=== PATIENT | male | born 1955 | race Two or more races ===

== ENCOUNTER 2022-12-05 15:57 | Inpatient (IN) | payer OTHER ==
[2022-12-05 16:08] VITALS: BMI 28.1
[2022-12-05] MEDS ORDERED: methylPREDNISolone NA SUCC 125 MG/2 ML VIAL IVPUSH ONE (16:23)
[2022-12-05] MEDS ORDERED: ALBUTEROL SO4 2.5/IPRATROPIUM 0.5 INH SOL 3 ML VIAL.NEB. NEB ONE (16:32)
[2022-12-05] MEDS ORDERED: methylPREDNISolone NA SUCC 125 MG/2 ML VIAL ONE (16:32)
[2022-12-05] MEDS: ALBUTEROL SO4 2.5/IPRATROPIUM 0.5 INH SOL 3 ML VIAL.NEB. NEB SCH (16:39)
[2022-12-05 17:05] LABS: VENOUS BASE EXCESS -8.6 mmol/L (-2-2); VENOUS O2 SATURATION 98.3 % (70-80); VENOUS PCO2 35.9 mmHg (38-52); VENOUS PH 7.295 (7.310-7.410)
[2022-12-05 17:09] LABS: BASO % 0.5 % (0-2.0); EOS % 8.4 % (0-4.5); HEMATOCRIT 34.6 % (35.4-49); HEMOGLOBIN 12.2 GM/dL (11.7-16.9); LYMPH % 8.6 % (8-40); MCH 31.1 pg (25.7-33.7); MCHC 35.3 g/dl (32.0-35.9); MEAN CELL VOLUME 88.2 fl (80-96); MEAN PLT VOLUME 7.1 fl (7.5-11.1); MONO % 6.8 % (3.8-10.2); NEUT % 75.7 % (42.8-82.8); PLATELET COUNT 272 10^3/uL (134-434); RBC 3.92 M/mm3 (4.00-5.60); RDW 14.5 % (11.9-15.9); WHITE BLOOD COUNT 6.2 K/mm3 (4.0-10.0)
[2022-12-05 17:14] LABS: INR 1.03 (0.83-1.09)
[2022-12-05 17:16] LABS: ACTIVATED PTT 29.9 SECONDS (25.2-36.5)
[2022-12-05 17:24] LABS: POTASSIUM 4.4 mmol/L (3.5-5.1)
[2022-12-05 17:27] LABS: ALBUMIN 3.5 g/dl (3.4-5.0); BLOOD UREA NITROGEN 18.5 mg/dL (7-18); CALCIUM 8.4 mg/dL (8.5-10.1); MAGNESIUM 1.4 mg/dL (1.8-2.4)
[2022-12-05 17:32] LABS: TOT PROT 6.7 g/dl (6.4-8.2)
[2022-12-05 17:35] LABS: N-TERMINAL BNP 237.1 pg/ml (5-125)
[2022-12-05] MEDS ORDERED: MAGNESIUM SULF 50% (8.12 MEQ/2 ML-1 GM VIAL) IVPB ONE (17:38)
[2022-12-05 17:40] LABS: BILIRUBIN,TOTAL 0.4 mg/dL (0.2-1)
[2022-12-05] MEDS ORDERED: MAGNESIUM 1GM/D5W - 1 GM/100 ML IVPB IVPB ONE (17:44)
[2022-12-05] MEDS ORDERED: ALBUTEROL SO4 0.083% IH SOL 2.5 MG/3 ML VIAL.NEB. NEB ONE ×2 (18:12→18:15)
[2022-12-05] MEDS ORDERED: ASPIRIN 325 MG TABLET PO ONE (18:15)
[2022-12-05] MEDS ORDERED: ASPIRIN 81 MG CHEWABLE TABLETS ONE (18:19)
[2022-12-05] MEDS ORDERED: FUROSEMIDE 40 MG/4 ML INJECTABLE VIAL IVPUSH ONE (21:15)
[2022-12-05 22:13] LABS: METHADONE, UR NEGATIVE (NEGATIVE); PHENCYCLIDINE,URINE NEGATIVE (NEGATIVE)
[2022-12-05 22:14] LABS: COCAINE, UR NEGATIVE (NEGATIVE); OPIATES, URI NEGATIVE (NEGATIVE); URINE BARBITURATES NEGATIVE (NEGATIVE)
[2022-12-05 22:17] LABS: URINE AMPHETAMINES NEGATIVE (NEGATIVE); URINE BENZODIAZEPINES NEGATIVE (NEGATIVE)
[2022-12-05] MEDS ORDERED: ENOXAPARIN NA (PORCINE) 30 MG/0.3 ML DISP.SYRIN SQ SCH (23:15)
[2022-12-05] MEDS ORDERED: ENOXAPARIN NA (PORCINE) 30 MG/0.3 ML DISP.SYRIN SQ ONE (23:45)
[2022-12-05] MEDS ORDERED: MELATONIN 5 MG TABLETS PO ONE (23:55)
[2022-12-06] MEDS ORDERED: methylPREDNISolone NA SUCC 40 MG/1 ML VIAL ONE ×2 (05:28→08:14)
[2022-12-06] MEDS ORDERED: ENOXAPARIN NA (PORCINE) 80 MG/0.8 ML DISP.SYRIN SQ ONE (05:28)
[2022-12-06] MEDS: methylPREDNISolone NA SUCC 40 MG/1 ML VIAL IVPUSH SCH ×2 (05:33→10:04)
[2022-12-06] MEDS ORDERED: ENOXAPARIN NA (PORCINE) 80 MG/0.8 ML DISP.SYRIN SQ SCH (06:00)
[2022-12-06] MEDS ORDERED: ALBUTEROL SO4 2.5/IPRATROPIUM 0.5 INH SOL 3 ML VIAL.NEB. NEB ONE ×2 (08:13→13:17)
[2022-12-06] MEDS ORDERED: ASPIRIN 81 MG CHEWABLE TABLETS ONE (08:14)
[2022-12-06 08:20] LABS: HEMATOCRIT 34.4 % (35.4-49); HEMOGLOBIN 12.2 GM/dL (11.7-16.9); MCH 31.6 pg (25.7-33.7); MCHC 35.3 g/dl (32.0-35.9); MEAN CELL VOLUME 89.5 fl (80-96); MEAN PLT VOLUME 7.5 fl (7.5-11.1); PLATELET COUNT 288 10^3/uL (134-434); RBC 3.84 M/mm3 (4.00-5.60); RDW 14.6 % (11.9-15.9); WHITE BLOOD COUNT 7.6 K/mm3 (4.0-10.0)
[2022-12-06 08:31] LABS: POTASSIUM 4.6 mmol/L (3.5-5.1)
[2022-12-06 08:39] LABS: CALCIUM 9.3 mg/dL (8.5-10.1)
[2022-12-06 08:41] LABS: ALBUMIN 3.5 g/dl (3.4-5.0); BILIRUBIN,TOTAL 0.5 mg/dL (0.2-1); BLOOD UREA NITROGEN 15.2 mg/dL (7-18); MAGNESIUM 1.6 mg/dL (1.8-2.4)
[2022-12-06 08:43] LABS: CREATININE 0.8 mg/dL (0.55-1.3)
[2022-12-06] MEDS ORDERED: ASPIRIN 81 MG CHEWABLE TABLETS PO SCH (10:00)
[2022-12-06] MEDS ORDERED: ENOXAPARIN NA (PORCINE) 40 MG/0.4 ML DISP.SYRIN SQ SCH (10:00)
[2022-12-06] MEDS: ALBUTEROL SO4 2.5/IPRATROPIUM 0.5 INH SOL 3 ML VIAL.NEB. NEB SCH ×2 (10:04→13:18)
[2022-12-06 10:11] VITALS: RESP 18
[2022-12-06 13:43] VITALS: BP 142/78; PULSE 90; TEMP 98
[2022-12-06] MEDS ORDERED: methylPREDNISolone NA SUCC 40 MG/1 ML VIAL IVPUSH SCH (18:00)
[2022-12-06] MEDS ORDERED: ATORVASTATIN CA 40 MG TABLET (FP) PO SCH (22:00)
== END 2022-12-06 13:45 | disposition short-term general hospital (02) | DRG 190 ==
LOC: JER 15:57 → JERBED 18:46 → OBSVTOIN 20:42
PROVIDERS: ADMIT Internal Medicine; ATTEND Internal Medicine
DX: I21.4 Non-ST elevation (NSTEMI) myocardial infarction (principal); I10 Essential (primary) hypertension; F20.9 Schizophrenia, unspecified; F14.10 Cocaine abuse, uncomplicated; J44.1 Chronic obstructive pulmonary disease with (acute) exacerbation; Z85.46 Personal history of malignant neoplasm of prostate
CPT/HCPCS: 0241U-QW; 36415; 71045-TC-FY; 80048; 80053; 80061; 80307; 82803; 83036; 83735; 83880; 84436; 84443; 84484; 85025; 85027; 85610; 85730; 93005; 93010; 99285-25; G0378

== ENCOUNTER 2024-12-12 19:53 | Observation (INO) | payer OTHER ==
[2024-12-12 20:07] VITALS: BP 130/86; PULSE 86; RESP 18; TEMP 98.2; BMI 29.7
[2024-12-12 21:06] LABS: ABSOLUTE IMMATURE GRANULOCYTES 0.01 x10^3/uL (0.0-0.031); BASOPHILS # 0.03 x10^3/uL (0.01-0.08); EOSINOPHIL % 6.8 % (0.8-7.0); EOSINOPHILS # 0.37 x10^3/uL (0.04-0.54); MCHC 36.1 g/dl (32.3-36.5); MEAN CELL VOLUME 84.4 fl (79.0-92.2); MEAN PLT VOLUME 9.0 fl (9.4-12.4); MONOCYTE # 0.49 x10^3/uL (0.30-0.82); MONOCYTE % 9.1 % (5.3-12.2); RDW 13.6 % (12.2-16.4)
[2024-12-12 21:30] LABS: GLUCOSE,RANDOM 119.0 mg/dL (74-106); TOT PROT 6.7 g/dl (6.4-8.2)
[2024-12-12 21:31] LABS: CO2 24.0 mmol/L (21-32)
[2024-12-12 21:33] LABS: ALK PHOS 97.0 U/L (40-150)
[2024-12-12 21:36] LABS: CREATININE 1.09 mg/dL (0.55-1.3); SGOT/AST 28.0 U/L (5-34); SGPT/ALT 21.0 U/L (0-55)
[2024-12-12 21:56] LABS: HCV DIAGNOSTIC IN-HOUSE W/RFLX NON-REACTIVE (NONREACTIVE)
[2024-12-12 23:36] LABS: HIV INTERPRETATION NEGATIVE (NEGATIVE)
== END 2024-12-12 22:57 | disposition left against medical advice (07) ==
LOC: JER 19:53 → JERBED 21:54
PROVIDERS: ADMIT Student in an Organized Health Care Education/Training Program; ATTEND Internal Medicine
DX: R07.9 Chest pain, unspecified (principal); R20.2 Paresthesia of skin; I25.10 Atherosclerotic heart disease of native coronary artery without angina pectoris; E78.5 Hyperlipidemia, unspecified; F14.10 Cocaine abuse, uncomplicated; I10 Essential (primary) hypertension; J45.909 Unspecified asthma, uncomplicated; I25.2 Old myocardial infarction; G89.29 Other chronic pain; Z85.46 Personal history of malignant neoplasm of prostate; Z53.29 Procedure and treatment not carried out because of patient's decision for other reasons
CPT/HCPCS: 36415; 71045-TC-FY; 80053; 83735; 83880; 84484; 85025; 86803; 87389; 93005; 93010; 99285-25; G0378